=== PATIENT | female | born 1985 | race Caucasian/White ===

== ENCOUNTER 2023-07-23 06:09 | Emergency (ER) | payer BC ==
[2023-07-23 06:15] VITALS: BP 132/87; PULSE 72; RESP 16; TEMP 97.7; BMI 36.6
== END 2023-07-23 06:39 | disposition home or self-care (01) ==
LOC: FER 06:09
DX: J02.9 Acute pharyngitis, unspecified (principal); Z20.822 Contact with and (suspected) exposure to COVID-19
CPT/HCPCS: 0241U-QW; 87651; 99283-25